=== PATIENT | male | born 1975 | race Caucasian/White ===

== ENCOUNTER 2016-10-15 17:10 | Emergency (ER) | payer MEDICAID ==
[2016-10-15 17:24] VITALS: BP 132/78
--- NOTE | 2016-10-15 17:49 | EDM.PDOC ---
ED HPI GENERAL MEDICAL PROBLEM - General Chief Complaint: Laceration Stated Complaint: laceration middle finger left hand Time Seen by Provider: 10/15/16 17:20 Source of Information: Reports: Patient History Limitations: Reports: No Limitations - History of Present Illness INITIAL COMMENTS - FREE TEXT/NARRATIVE: Patient is a 41 year old man who was cutting off the formica backsplash off of a countertop in his workshop at home here in [place] with a jig saw. He glanced the left middle finger knuckle on the side with the blade and has a superficial flap laceration into the superficial skin layer. He has no loss of function and no loss of sensation but it is bleeding a lot and needs to have sutures. 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: earlier in the day for a previous groin strain Left 3-Middle finger Pain Score (Numeric/FACES): 1 - Related Data Allergies Allergy/AdvReac Type Severity Reaction Status Date / Time No Known Allergies Allergy Verified 10/15/16 17:36 Home Meds: Home Meds NK [No Known Home Meds] 10/15/16 [History] ED ROS GENERAL - Review of Systems Review Of Systems: See Below Constitutional: Reports: No Symptoms HEENT: Reports: No Symptoms Respiratory: Reports: No Symptoms Cardiovascular: Reports: No Symptoms Endocrine: Reports: No Symptoms GI/Abdominal: Reports: No Symptoms : Reports: No Symptoms Musculoskeletal: Reports: No Symptoms Skin: Reports: Wound Neurological: Reports: No Symptoms Psychiatric: Reports: No Symptoms Hematologic/Lymphatic: Reports: No Symptoms ED EXAM, SKIN/RASH Exam: See Below Exam Limited By: No Limitations General Appearance: Alert, WD/WN, No Apparent Distress Eye Exam: Bilateral Eye: EOMI, Normal Fundi, Normal Inspection, PERRL Ears: Normal External Exam, Normal Canal, Hearing Grossly Normal, Normal TMs Nose: Normal Inspection, Normal Mucosa, No Blood Throat/Mouth: Normal Inspection, Normal Lips, Normal Teeth, Normal Gums, Normal Oropharynx, Normal Voice, No Airway Compromise Head: Atraumatic, Normocephalic Neck: Normal Inspection, Supple, Non-Tender, Full Range of Motion Respiratory/Chest: No Respiratory Distress, Lungs Clear, Normal Breath Sounds, No Accessory Muscle Use, Chest Non-Tender Cardiovascular: Normal Peripheral Pulses, Regular Rate, Rhythm, No Edema, No Gallop, No JVD, No Murmur, No Rub GI/Abdominal: Normal Bowel Sounds, Soft, Non-Tender, No Organomegaly, No Distention, No Abnormal Bruit, No Mass Extremities: Other (1.5 cm flap laceration on the lateral middle finger by the proximal interphalangeal joint. No involvement of the tendon and normal neurological exam in finger with normal function and sensation.) Neurological: Alert, Oriented, CN II-XII Intact, Normal Cognition, Normal Gait, Normal Reflexes, No Motor/Sensory Deficits ED SKIN PROCEDURES - Laceration/Wound Repair Left Middle Medial Proximal Finger Lac/Wound length In cm: 1.5 Appearance: Subcutaneous, Other (Lateral flap incision.) Distal NVT: Neuro & Vascular Intact, No Tendon Injury Anesthetic Type: Local Local Anesthesia - Lidocaine (Xylocaine): 1% Plain Local Anesthetic Volume: 3cc Skin Prep: Saline Exploration/Debridement/Repair: Wound Explored, In a Bloodless Field, Explored to Base Closed with: Sutures Suture Size: 3-0 # of Sutures: 5 (Interrupted) Suture Type: Nylon Course - Vital Signs Text/Narrative:: Uneventful ED course. Wound was repaired and bandaged with antibiotic ointment and gauze. Wound care reviewed with patient and he will return if any infection occurs. He got a tetanus shot one year ago. He will return to [facility] for suture removal in 8 days. Last Recorded V/S: Last Vital Signs Temp 36.4 C 10/15/16 17:10 Pulse 60 10/15/16 17:10 Resp 14 10/15/16 17:10 BP 132/78 10/15/16 17:10 Pulse Ox 100 10/15/16 17:10 Departure - Departure Time of Disposition: 18:05 Disposition: Home, Self-Care 01 Condition: Good Clinical Impression: Laceration of finger of left hand - Discharge Information Instructions: Laceration Care, Adult, [id number], Stitches, [place], or Adhesive Wound Closure, [id number] Forms: ED Department Discharge
== END 2016-10-15 18:06 | disposition home or self-care (01) ==
LOC: LB.ED 17:10
DX: S61.213A Laceration without foreign body of left middle finger without damage to nail, initial encounter (principal); W27.0XXA Contact with workbench tool, initial encounter; Y92.009 Unspecified place in unspecified non-institutional (private) residence as the place of occurrence of the external cause
CPT/HCPCS: 12001; 99283-25

== ENCOUNTER 2016-10-21 23:03 | Emergency (ER) | payer MEDICAID ==
[2016-10-21] MEDS ORDERED: Ketorolac 60 MG/2 ML SDV IM ONE (23:07)
--- NOTE | 2016-10-21 23:12 | EDM.PDOC ---
ED HPI GENERAL MEDICAL PROBLEM - General Chief Complaint: Upper Extremity Injury/Pain Stated Complaint: INFECTION IN FINGER Time Seen by Provider: 10/21/16 23:06 Source of Information: Reports: Patient History Limitations: Reports: No Limitations - History of Present Illness INITIAL COMMENTS - FREE TEXT/NARRATIVE: left middle finger with infection finger infection; this is a 41 year old male reports has a laceration repair with sutures to finger last Sunday, finger was healing well until til today when it became red, swollen, white colored discharge with throbbing pain. denies fever or chills. 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 - Related Data Allergies Allergy/AdvReac Type Severity Reaction Status Date / Time No Known Allergies Allergy Verified 10/15/16 17:36 Home Meds: Home Meds NK [No Known Home Meds] 10/15/16 [History] Review of Systems - Review of Systems Review Of Systems: See Below Constitutional: Reports: No Symptoms, Other (finger pain) Eyes: Reports: No Symptoms Ears: Reports: No Symptoms Nose: Reports: No Symptoms Mouth/Throat: Reports: No Symptoms Respiratory: Reports: No Symptoms Cardiovascular: Reports: No Symptoms GI/Abdominal: Reports: No Symptoms Skin: Reports: Other (laceration with suture; pain, redness and discharge) Neurological: Reports: No Symptoms Psychiatric: Reports: No Symptoms ED EXAM, GENERAL - Physical Exam Exam: See Below Exam Limited By: No Limitations General Appearance: Alert, WD/WN, No Apparent Distress, Anxious Nose: Normal Inspection Head: Atraumatic, Normocephalic Neck: Normal Inspection, Supple Respiratory/Chest: No Respiratory Distress Extremities: Other (left middle finger pain) Neurological: Alert, Oriented, Normal Cognition, Normal Gait, No Motor/Sensory Deficits Psychiatric: Normal Affect, Normal Mood Skin Exam: Warm, Other (left middle finger; sutures tense, surround tissue red, edema, scant white discharge, pain with any movement of finger.) Lymphatic: No Adenopathy Course - Orders/Labs/Meds Meds: Medications Discontinued Medications Generic Name Dose Route Start Last Admin Trade Name Freq PRN Reason Stop Dose Admin Ketorolac Tromethamine 60 mg 10/21/16 23:07 Toradol IM 10/21/16 23:08 ONETIME ONE Departure - Departure Time of Disposition: 23:40 Disposition: Home, Self-Care 01 Condition: Good Clinical Impression: Laceration of finger with infection Qualifiers: Encounter type: subsequent encounter Qualified Code(s): S61.219D - Laceration without foreign body of unspecified finger without damage to nail, subsequent encounter - Discharge Information Instructions: Laceration Care, Adult Forms: ED Department Discharge Additional Instructions: Take the antibiotic until it is all gone. Call if you have any questions or concerns. Care Plan Goals: finger infection; suture placed 7 days ago -Toradol 60 mg IM -medication; Augmentin 875mg one po every 12 hours til gone -Motrin or Tylenol for pain or fever -skin care discussed Return to Clinic on Sunday for recheck Return to ER for any increased pain, swelling, redness, fever, chills or not improved. - Problem List & Annotations (1) Laceration of finger with infection SNOMED Code(s): 625329479, 525557500 Code(s): S61.219A - LACERATION W/O FB OF UNSP FINGER W/O DAMAGE TO NAIL, INIT ; L08.9 - LOCAL INFECTION OF THE SKIN AND SUBCUTANEOUS TISSUE, UNSP Status: Acute Priority: High Current Visit: Yes Qualifiers: Encounter type: subsequent encounter Qualified Code(s): S61.219D - Laceration without foreign body of unspecified finger without damage to nail, subsequent encounter; L08.9 - Local infection of the skin and subcutaneous tissue, unspecified - Problem List Review Problem List Initiated/Reviewed/Updated: Yes - Assessment/Plan Plan: finger infection; suture placed 7 days ago -Toradol 60 mg IM -medication; Augmentin 875mg one po every 12 hours til gone -Motrin or Tylenol for pain or fever -skin care discussed Return to Clinic on Sunday for recheck Return to ER for any increased pain, swelling, redness, fever, chills or not improved.
[2016-10-21] MEDS ORDERED: Amoxicillin/Clavulanate K 875-125 MG Tab ONE (23:25)
[2016-10-22 02:01] VITALS: BP 132/76
== END 2016-10-21 23:20 | disposition home or self-care (01) ==
LOC: LB.ED 23:03
DX: S61.213D Laceration without foreign body of left middle finger without damage to nail, subsequent encounter (principal); X58.XXXD Exposure to other specified factors, subsequent encounter
CPT/HCPCS: 96372; 99283; A9270; J1885